=== PATIENT | male | born 1975 | race Caucasian/White ===

== ENCOUNTER → 2024-08-25 07:49 | Outpatient (REF) | payer BC, SELFPAY | LOC: RAD 07:49 | PROVIDERS: ATTENDING PHYSICIAN Family Medicine | DX: M54.50 Low back pain, unspecified (principal); M25.551 Pain in right hip; M25.552 Pain in left hip; M54.16 Radiculopathy, lumbar region | CPT/HCPCS: 72110; 73522 ==